=== PATIENT | male | born 1985 | race Caucasian/White ===

== ENCOUNTER 2022-04-17 18:44 | Emergency (ER) | payer BC, MEDICAID, OTHER | END 2022-04-17 20:17 | disposition home or self-care (01) | LOC: EEVIPCON 18:44 → CC.ED 18:44 | DX: M25.572 Pain in left ankle and joints of left foot (principal) | CPT/HCPCS: 36415; 73610-LT; 80053; 84550; 85025; 99283 ==

== ENCOUNTER 2022-10-02 19:45 | Emergency (ER) | payer BC, MEDICAID ==
[2022-10-02] MEDS ORDERED: Codeine/Promethazine 10-6.25 MG/5 ML Syrup 5 ML UD Cup PO ONE (20:10)
[2022-10-02] MEDS ORDERED: Ketorolac 30 MG/ML SDV IVPUSH ONE (20:10)
[2022-10-02] MEDS ORDERED: Lactated Ringers 1,000 ML IV ONE (20:12)
== END 2022-10-02 21:50 | disposition home or self-care (01) ==
LOC: CC.ED 19:45
DX: G89.29 Other chronic pain (principal); M25.579 Pain in unspecified ankle and joints of unspecified foot; M25.569 Pain in unspecified knee; M25.559 Pain in unspecified hip; M54.2 Cervicalgia; M25.519 Pain in unspecified shoulder; M79.646 Pain in unspecified finger(s); F10.10 Alcohol abuse, uncomplicated; I10 Essential (primary) hypertension; Z72.0 Tobacco use
CPT/HCPCS: 96361; 96374; 99283; 99283-25; A9270-GY; J1885; J7120